=== PATIENT | male | born 1950 | race Caucasian/White ===

== ENCOUNTER → 2024-06-04 | Outpatient (CLI) | payer MEDICARE, OTHER ==
[~2024-06-04] MED LIST: ASPIRIN PO; BENICAR; BENICAR 20MG TA20 MG PO; FLOMAX; FLOMAX 0.40.4 MG/CAP PO; GENTAMICIN180 MG/502 NS; LEVAQUIN PO; LORTAB 5/500 501 TAB PO; PRILOSEC; SINGULAIR 110 MG/TAB PO; [UNRECOGNIZED DRUG - OTHER] PO
== END ==
LOC: COL.RAD 13:38
DX: K40.90 Unilateral inguinal hernia, without obstruction or gangrene, not specified as recurrent (principal)

== ENCOUNTER 2024-07-11 06:51 | Day surgery (SDC) | payer MEDICARE, BC ==
[~2024-07-11] VITALS: Ht 177.8 cm; Wt 76.2 kg
[~2024-07-11 06:51] MED LIST changes: +LR 1,000 ML IV SCH
[2024-07-11 07:17] VITALS: BP 127/70; PULSE 67; TEMP 97.5
[2024-07-11] MEDS ORDERED: BENICAR 20MG TA20 MG PO (07:20)
[2024-07-11] MEDS ORDERED: CRESTOR5 MG PO (07:21)
[2024-07-11] MEDS ORDERED: THE MEDICINE S200 M2 PO (07:21)
[2024-07-11] MEDS ORDERED: ASPIRIN E.C. 8181 MG PO (07:22)
[2024-07-11] MEDS ORDERED: PRILOTC PO (07:22)
[2024-07-11] MEDS ORDERED: TYLENOL 8 HR PO (07:23)
[2024-07-11] MEDS ORDERED: HYDROmorphone 1 MG/1 ML SYRINGE [PACU/SDC ONLY] IV PRN (08:00)
[2024-07-11] MEDS ORDERED: fentaNYL 50 MCG/ML 1 ML SYRINGE/VIAL [PACU/SDC ONLY] IV PRN ×2 (08:00)
[2024-07-11] MEDS ORDERED: Ondansetron 4 MG/2 ML VIAL IV PRN ×2 (08:00→10:30)
[2024-07-11] MEDS ORDERED: droPERidol 2.5 MG/ML 2 ML VIAL IV PRN (08:00)
[2024-07-11] MEDS ORDERED: hydrALAZINE 20 MG/ML 1 ML VIAL IV PRN (08:00)
[2024-07-11] MEDS ORDERED: Meperidine 50 MG/ML 1 ML VIAL IV PRN (08:00)
[2024-07-11] MEDS ORDERED: fentaNYL 50 MCG/ML 2 ML VIAL ONE (08:20)
[2024-07-11] MEDS ORDERED: Ondansetron 4 MG/2 ML VIAL ONE (08:21)
[2024-07-11] MEDS ORDERED: dexAMETHasone 10 MG/ML VIAL ONE (08:21)
[2024-07-11] MEDS ORDERED: NS 10 ML IV ONE (08:21)
[2024-07-11] MEDS ORDERED: Ketorolac 30 MG/ML VIAL ONE (08:55)
[2024-07-11] MEDS ORDERED: ePHEDrine 50 MG/ML VIAL ONE (09:05)
[2024-07-11 10:24] VITALS: BP 111/57; PULSE 67; TEMP 97.6
[2024-07-11] MEDS ORDERED: NORCO 325 MG-51 TAB PO (10:29)
[2024-07-11] MEDS ORDERED: Morphine 4 MG/ML VIAL IV PRN (10:30)
[2024-07-11 10:39] VITALS: BP 107/60; PULSE 68
[2024-07-11 10:54] VITALS: BP 124/60; PULSE 74
[2024-07-11 11:09] VITALS: BP 132/75; PULSE 64
--- NOTE | 2024-07-11 11:30 | NUR ---
1024 RETURNS TO ROOM 7 FROM OR PER CART WITH HOB ELEVATED 30 DEGREES. DROWSY, AROUSES SPONTANEOUSLY, RESP UNLABORED. FAMILIARIZED WITH SURROUNDINGS. VITAL SIGNS OBTAINED. ABD SOFT. LEFT LOWER ABD DRESSING CLEAN DRY AND INTACT. DENIES PAIN. CALL LIGHT AT SIDE 1038 DR SOSA HERE. VISITS WITH PATIENT 1050 HOB ELEVATED 70 DEGREES. TOLERATES PO PUDDING IN ADDITION TO WATER WITHOUT NAUSEA. 1100 AWAKE, ALERT. CONVERSES APPROPRIATELY, DISCHARGE INSTRUCTIONS REVIEWED. PATIENT VERBALIZES UNDERSTANDING. COPY PROVIDED IN DISCHARGE FOLDER 1115 SITS ON EDGE OF CART. DRESSES SELF. REPORTS MILD DISCOMFORT WITH ACTIVITY, DENIES NEED FOR PAIN MED
== END 2024-07-11 11:30 | disposition home or self-care (01) ==
LOC: SDCO 06:51
DX: K40.90 Unilateral inguinal hernia, without obstruction or gangrene, not specified as recurrent (principal); N40.0 Benign prostatic hyperplasia without lower urinary tract symptoms
CPT/HCPCS: C1781; J0690; J1100; J1885; J2405; J2704; J3010; J7120